=== PATIENT | male | born 1965 | race Caucasian/White ===

== ENCOUNTER 2020-01-21 09:15 | Emergency (ER) | payer BC ==
[2020-01-21] MEDS ORDERED: LORazepam 2 MG/ML VIAL ONE (10:34)
[2020-01-21] MEDS ORDERED: LEVALBUTEROL 1.25 MG/3 ML NEB ONE (10:34)
[2020-01-21 11:01] LABS: Basophils % 0.6 % (0-1.3); Lymphocytes % 16.9 % (15.3-44.8); MPV 8.6 fL (7.6-11.3); RBC Red Blood Cell Count 5.57 M/uL (4.33-5.43)
[2020-01-21 11:05] LABS: Protime INR 1.14
[2020-01-21 11:16] LABS: ALT/SGPT 54 U/L (12-78); AST/SGOT 26 U/L (15-37); Albumin 4.1 g/dL (3.4-5.0); Alkaline Phosphatase 54 U/L (45-117); BUN Blood Urea Nitrogen 13 mg/dL (7-18); Bicarbonate 30 mmol/L (21-32); Bilirubin Direct 0.2 mg/dL (0-0.2); Bilirubin Total 0.9 mg/dL (0.2-1.0); Glucose Level 107 mg/dL (74-106); Magnesium 2.4 mg/dL (1.8-2.4); NT PRO-BNP 30 pg/mL (<125); Potassium 3.4 mmol/L (3.5-5.1); Protein, Total 8.9 g/dL (6.4-8.2); Sodium Level 138 mmol/L (136-145); Troponin (Emerg Dept Use Only) < 0.02 ng/mL (0.0-0.045)
--- NOTE | 2020-01-21 12:26 | EDPHYS ---
Physician Documentation [facility] Name: Riley Harrell Age: 54 yrs Sex: Male : 1965 Arrival Date: 01/21/2020 Time: 09:20 Bed 2 Private MD: ED Physician Boy Phelps HPI: 01/20 12:20 This 54 yrs old Male presents to ER via Ambulatory with complaints of Sinus ma2 Congestion, Breathing Difficulty. 12:20 Onset: The symptoms/episode began/occurred gradually, 3 week(s) ago. Severity of ma2 symptoms: At their worst the symptoms were mild, in the emergency department the symptoms are unchanged. Associated signs and symptoms: The patient has no apparent associated signs or symptoms. The patient has experienced similar episodes in the past. Historical: - Allergies: 09:43 Cefuroxime; jittery; ss 09:43 Prednisone; jittery; ss - Immunization history:: Adult Immunizations unknown. - Social history:: Smoking status: Patient denies any tobacco usage or history of. Patient/guardian denies using alcohol, street drugs, The patient lives with spouse. - Family history:: not pertinent. ROS: 12:20 Constitutional: Negative for fever, chills, and weight loss. ma2 12:20 All other systems are negative. Exam: 12:20 Constitutional: This is a well developed, well nourished patient who is awake, alert, ma2 and in no acute distress. Chest/axilla: Normal chest wall appearance and motion. Nontender with no deformity. No lesions are appreciated. Cardiovascular: Regular rate and rhythm with a normal S1 and S2. No gallops, murmurs, or rubs. Normal PMI, no JVD. No pulse deficits. Respiratory: mild expiratory wheezes, bilat Lungs have equal breath sounds bilaterally, clear to auscultation and percussion. No rales, rhonchi No increased work of breathing, no retractions or nasal flaring. Abdomen/GI: Soft, non-tender, with normal bowel sounds. No distension or tympany. No guarding or rebound. No evidence of tenderness throughout. Vital Signs: 09:38 Resp 19; Temp 98.6(TE); Pulse Ox 97% on R/A; Weight 106.59 kg; Height 5 ft. 9 in. ss (175.26 cm); Pain 0/10; 09:43 BP 138 / 80; ss 10:30 BP 99 / 63; Pulse 93; Resp 24; Pulse Ox 99% on R/A; hb 11:30 BP 116 / 74; Pulse 111; Resp 26; Pulse Ox 97% on R/A; hb 12:13 BP 106 / 64; Pulse 106; Resp 23; Pulse Ox 96% on R/A; hb 09:38 Body Mass Index 34.70 (106.59 kg, 175.26 cm) ss MDM: 09:38 Patient medically screened. ma2 12:20 Differential Diagnosis: Bronchitis Influenza Upper Respiratory Infection Allergic ma2 Rhinitis Asthma Exacerbation. Data reviewed: vital signs, nurses notes. Counseling: I had a detailed discussion with the patient and/or guardian regarding: the historical points, exam findings, and any diagnostic results supporting the discharge/admit diagnosis, the presence of at least one elevated blood pressure reading (>120/80) during this emergency department visit, the need for outpatient follow up. Response to treatment: the patient's symptoms have markedly improved after treatment. ED course: hr improved, to 105, although it is still >100 however he feels much better no sob anymore.. all symptoms resolved... he received nebs and hat could attribute to the tachycardia as well.. he want to go home.. he will return to er if he is having sob. and he will check his pulse later.. . 08 10:04 Order name: Basic Metabolic Panel; Complete Time: 11:56 [facility] 01/20 10:04 Order name: CBC with Diff; Complete Time: 11:56 [facility] 01/20 10:04 Order name: LFT's; Complete Time: 11:56 nm01/20 10:04 Order name: Magnesium; Complete Time: 11:56 nm2 01/20 10:04 Order name: NT PRO-BNP; Complete Time: 11:56 nm2 01/20 10:04 Order name: PT-INR; Complete Time: 11:56 nm2 01/20 10:04 Order name: Troponin (emerg Dept Use Only); Complete Time: 11:57 nm2 01/20 10:04 Order name: XRAY Chest (1 view) [facility] 01/20 10:04 Order name: EKG; Complete Time: 10:05 ma01/20 10:04 Order name: Cardiac monitoring; Complete Time: 10:34 [facility] 01/20 10:04 Order name: EKG - Nurse/Tech; Complete Time: :34 [facility] 01/20 10:04 Order name: IV Saline Lock; Complete Time: : [facility] 01/20 10:04 Order name: Labs collected and sent; Complete Time: 10:35 [facility] 01/20 10:04 Order name: O2 Per Protocol; Complete Time: [facility] 01/20 10:04 Order name: O2 Sat Monitoring; Complete Time: 10:34 ma2 Administered Medications: 10:35 Drug: Xopenex 1.25 mg Route: Inhalation; hb 15:09 Follow up: Response: No adverse reaction; RASS: Alert and Calm (0) ll1 10:35 Drug: Ativan 1 mg Route: PO; hb 13:30 Follow up: Response: No adverse reaction; RASS: Alert and Calm (0) ll1 12:37 Drug: AtroVENT Aerosol 0.5 mg Route: Inhalation; hb 13:30 Follow up: Response: No adverse reaction; RASS: Alert and Calm (0) ll1 12:37 Drug: MethylPrednisoLONE 125 mg Route: IVP; Site: left antecubital; hb 13:30 Follow up: Response: No adverse reaction; RASS: Alert and Calm (0) ll1 Disposition: 01/21/20 12:26 Discharged to Home. Impression: Shortness of breath. - Condition is Stable. - Discharge Instructions: Shortness of Breath, [id number]. - Prescriptions for Ativan 1 mg Oral Tablet - take 1 tablet by ORAL route every 8 hours As needed; 10 tablet. Xopenex 1.25 mg/3 mL Inhalation Solution for Nebulization - inhale 1 unit by NEBULIZATION route every 8 hours As needed; 1 box. Albuterol Sulfate 2.5 mg /3 mL (0.083 %) Inhalation Solution for Nebulization - inhale 1 unit by NEBULIZATION route every 8 hours As needed; 1 box. - Medication Reconciliation Form, Thank You Letter, Antibiotic Education, Prescription Opioid Use form. - Follow up: Private Physician; When: Tomorrow; Reason: Continuance of care. Signatures: Dispatcher [employer] Jeanne Cisneros RN RN Caprice Schofield RN RN hb Alzahri, Mohammad, MD MD ma2 Juan Pablo Christy RN ll1 Corrections: (The following items were deleted from the chart) 13:31 12:26 01/21/2020 12:26 Discharged to Home. Impression: Shortness of breath. Condition ss is Stable. Prescriptions for Ativan 1 mg Oral Tablet - take 1 tablet by ORAL route every 8 hours As needed; 10 tablet, Xopenex 1.25 mg/3 mL Inhalation Solution for Nebulization - inhale 1 unit by NEBULIZATION route every 8 hours As needed; 1 box, Albuterol Sulfate 2.5 mg /3 mL (0.083 %) Inhalation Solution for Nebulization - inhale 1 unit by NEBULIZATION route every 8 hours As needed; 1 box. and Forms are Medication Reconciliation Form, Thank You Letter, Antibiotic Education, Prescription Opioid Use. Follow up: Private Physician; When: Tomorrow; Reason: Continuance of care. ma2
--- NOTE | 2020-01-21 12:26 | ER ---
Nurse's Notes [facility] Name: Riley Harrell Age: 54 yrs Sex: Male : 1965 Arrival Date: 01/21/2020 Time: 09:20 Bed 2 Private MD: Diagnosis: Shortness of breath Presentation: 01/20 09:38 Chief complaint: Patient states: "I've been fighting a sinus infection for 1-3 months. ss I'm on the 4th set of antibiotics from my MD. My breathing isn't getting better and my doctor said if it gets worse to come back. I was swabbed for COVID a month ago and it was negative, and swabbed again on Wednesday, but those results are not back yet.". Coronavirus screen: Client denies travel out of the [place] in the last 14 days. congestion, shortness of breath. Ebola Screen: Patient denies exposure to infectious person. Patient denies travel to an Ebola-affected area in the 21 days before illness onset. Initial Sepsis Screen: Does the patient meet any 2 criteria? HR > 90 bpm. No. Patient's initial sepsis screen is negative. Does the patient have a suspected source of infection? No. Patient's initial sepsis screen is negative. Risk Assessment: Do you want to hurt yourself or someone else? Patient reports no desire to harm self or others. Onset of symptoms was October 2019. 09:38 Method Of Arrival: Ambulatory 09:38 Acuity: JORDYN 3 ss Historical: - Allergies: 09:43 Cefuroxime; jittery; ss 09:43 Prednisone; jittery; ss - Immunization history:: Adult Immunizations unknown. - Social history:: Smoking status: Patient denies any tobacco usage or history of. Patient/guardian denies using alcohol, street drugs, The patient lives with spouse. - Family history:: not pertinent. Screenin:39 Abuse screen: Denies threats or abuse. Denies injuries from another. Nutritional hb screening: No deficits noted. Tuberculosis screening: No symptoms or risk factors identified. Fall Risk None identified. Assessment: 10:25 General: Appears in no apparent distress. Behavior is calm, cooperative. Pain: Denies hb pain. Neuro: Level of Consciousness is awake, alert, obeys commands, Oriented to person, place, time, situation. Cardiovascular: Capillary refill < 3 seconds Patient's skin is warm and dry. Rhythm is regular. Respiratory: Airway is patent Respiratory effort is even, unlabored, Respiratory pattern is regular, symmetrical, Breath sounds are clear bilaterally. GI: No signs and/or symptoms were reported involving the gastrointestinal system. : No signs and/or symptoms were reported regarding the genitourinary system. EENT: No signs and/or symptoms were reported regarding the EENT system. Derm: Skin is pink, warm \\T\\ dry. Musculoskeletal: No signs and/or symptoms reported regarding the musculoskeletal system. 11:00 Reassessment: Patient appears in no apparent distress at this time. Patient and/or hb family updated on plan of care and expected duration. Pain level reassessed. Patient is alert, oriented x 3, equal unlabored respirations, skin warm/dry/pink. 12:00 Reassessment: Patient appears in no apparent distress at this time. Patient and/or hb family updated on plan of care and expected duration. Pain level reassessed. Patient is alert, oriented x 3, equal unlabored respirations, skin warm/dry/pink. 13:00 Reassessment: Patient appears in no apparent distress at this time. Patient and/or ll1 family updated on plan of care and expected duration. Pain level reassessed. Patient is alert, oriented x 3, equal unlabored respirations, skin warm/dry/pink. Vital Signs: 09:38 Resp 19; Temp 98.6(TE); Pulse Ox 97% on R/A; Weight 106.59 kg; Height 5 ft. 9 in. ss (175.26 cm); Pain 0/10; 09:43 BP 138 / 80; ss 10:30 BP 99 / 63; Pulse 93; Resp 24; Pulse Ox 99% on R/A; hb 11:30 BP 116 / 74; Pulse 111; Resp 26; Pulse Ox 97% on R/A; hb 12:13 BP 106 / 64; Pulse 106; Resp 23; Pulse Ox 96% on R/A; hb 09:38 Body Mass Index 34.70 (106.59 kg, 175.26 cm) ED Course: 09:20 Patient arrived in ED. ds1 09:38 Boy Phelps MD is Attending Physician. ma2 09:38 Arm band placed on right wrist. ss 09:41 Triage completed. ss 10:15 Schofield, Caprice, RN is Primary Nurse. hb 10:29 EKG done, by ED staff, reviewed by Boy Phelps MD. [facility] 10:35 Inserted saline lock: 20 gauge in left antecubital area, using aseptic technique. Blood hb collected. 10:39 Patient has correct armband on for positive identification. Bed in low position. Call hb light in reach. Side rails up X 1. 12:20 XRAY Chest (1 view) In Process Unspecified. EDMS 13:25 IV discontinued, intact, bleeding controlled, No redness/swelling at site. Pressure ll1 dressing applied. 13:30 No provider procedures requiring assistance completed. ll1 Administered Medications: 10:35 Drug: Xopenex 1.25 mg Route: Inhalation; hb 15:09 Follow up: Response: No adverse reaction; RASS: Alert and Calm (0) ll1 10:35 Drug: Ativan 1 mg Route: PO; hb 13:30 Follow up: Response: No adverse reaction; RASS: Alert and Calm (0) ll1 12:37 Drug: AtroVENT Aerosol 0.5 mg Route: Inhalation; hb 13:30 Follow up: Response: No adverse reaction; RASS: Alert and Calm (0) ll1 12:37 Drug: MethylPrednisoLONE 125 mg Route: IVP; Site: left antecubital; hb 13:30 Follow up: Response: No adverse reaction; RASS: Alert and Calm (0) ll1 Outcome: 12:26 Discharge ordered by MD. paredes 13:31 Patient left the ED. ss 13:31 Discharged to home ambulatory. ll1 13:31 Condition: stable 13:31 Discharge instructions given to patient, Instructed on discharge instructions, follow up and referral plans. no drinking with medication, no driving heavy equipment, medication usage, Demonstrated understanding of instructions, follow-up care, medications, Prescriptions given X 3. Signatures: Dispatcher [employer] EDMI Nia Morfin ds1 Jeanne Lopez RN RN Caprice Schofield, RN ALMA [facility] Boy Phelps MD MD ma2 Lewis, Lynsay, RN RN 1
--- NOTE | 2020-01-21 12:32 | RAD REPORT ---
EXAM DESCRIPTION: Miroslava Single View01/21/2020 12:20 pm CLINICAL HISTORY: Chest pain COMPARISON: none FINDINGS: The lungs appear clear of acute infiltrate. The heart is normal size IMPRESSION: No acute abnormalities displayed
[2020-01-21] MEDS ORDERED: METHYLPREDNISOLONE 125 MG INJ ONE (12:43)
[2020-01-21] MEDS ORDERED: IPRATROPIUM BROM 0.5MG/2.5ML ONE (12:43)
[2020-01-21 13:39] VITALS: TEMP 98.6
[2020-01-21 13:44] VITALS: BP 106/64; O2SAT 96
--- NOTE | 2020-01-23 11:07 | EKG ---
Test Date: 2020-01-21 Test Time: 10:29:00 Necktie Turner: JUAN PABLO MEASUREMENT RESULTS: Intervals: Rate: 110 OK: 154 QRSD: 92 QT: 324 QTc: 438 [place]: P: 36 OK: 154 QRS: 37 T: 21 INTERPRETIVE STATEMENTS: Sinus tachycardia Otherwise normal ECG No previous ECG available for comparison Electronically Signed On 01-23-20 11:03:15 CDT by Marek Stout
== END 2020-01-21 13:31 | disposition home or self-care (01) ==
LOC: ER 09:15
DX: R06.02 Shortness of breath (principal); Z88.8 Allergy status to other drugs, medicaments and biological substances
CPT/HCPCS: 85025; 80048; 36415; 83735; 85610; 80076; 84484; 83880; 71045; J2930; 93005; 96374; 99284